=== PATIENT | male | born 1990 | race African-American/Black ===

== ENCOUNTER 2020-12-31 05:29 | Inpatient (IN) | payer OTHER ==
[2020-12-31] VITALS (21 sets, daily range): BP systolic 108–152; BP diastolic 44–97
[~2020-12-31] VITALS: Ht 190.5 cm; Wt 66.0 kg
[2020-12-31] MEDS ORDERED: ONDANSETRON HCL 4 MG/2 ML VIAL ONE ×2 (05:30→14:37)
[2020-12-31] MEDS ORDERED: TETANUS/DIPHTHERIA TOXOID [ADULT] 0.5 ML VIAL IM ONE (05:31)
[2020-12-31] MEDS ORDERED: MORPHINE 4 MG SYG (4MG/1ML) ONE ×2 (05:31→10:04)
[2020-12-31] MEDS ORDERED: CEFAZOLIN SODIUM 1 GM VIAL ONE ×2 (05:31→15:11)
[2020-12-31] MEDS ORDERED: SODIUM CHLORIDE 0.9% 100 ML IV ONE ×2 (05:32→10:32)
[2020-12-31 05:48] LABS: BASOPHILS % (AUTO) 0.5 % (0.0-5.0); HEMATOCRIT 38.7 % (42-54); LYMPHOCYTES % (AUTO) 51.5 % (21.0-51.0); MEAN CORPUSCULAR HEMOGLOBIN 29.9 pg (27.0-33.0); MEAN CORPUSCULAR HGB CONC 32.8 g/dL (32.0-36.0); MEAN CORPUSCULAR VOLUME 91.1 fL (79-99); MONOCYTES % (AUTO) 6.1 % (3.0-13.0); NEUTROPHILS % (AUTO) 39.3 % (40.0-77.0); PLATELET COUNT (AUTO) 181 K/uL (130-400); RED BLOOD CELL COUNT(AUTO) 4.25 MIL/uL (4.50-6.20); RED CELL DISTRIBUTION WIDTH 16.2 % (11.0-15.5); WHITE BLOOD COUNT (AUTO) 10.4 K/uL (4.8-10.8)
[2020-12-31] MEDS ORDERED: SODIUM CHLORIDE 0.9% 1000ML 1,000 ML IV ONE ×2 (06:03→09:59)
[2020-12-31] MEDS ORDERED: IOHEXOL-350 75 ML VIAL IV ONE (06:10)
[2020-12-31 07:08] LABS: ALBUMIN 4.1 g/dL (3.5-5.0); BILIRUBIN,TOTAL 0.3 mg/dL (0.2-1.0); CREATININE 1.5 mg/dL (0.5-1.5); POTASSIUM 3.5 mmol/L (3.5-5.1)
[2020-12-31] MEDS ORDERED: MIDAZOLAM HCL 5 MG/ML 2ML VIAL IV ONE (07:23)
[2020-12-31] MEDS ORDERED: LIDOCAINE 1%-EPI 1:100,000 20 ML VIAL IJ ONE (07:23)
[2020-12-31 10:12] LABS: APPEARANCE,URINE Clear (CLEAR); BILIRUBIN,URINE Negative (NEGATIVE); COLOR,URINE Yellow (YELLOW); GLUCOSE, URINE (UA) Negative (NEGATIVE); KETONES,URINE Trace mg/dL (NEGATIVE); LEUKOCYTE ESTERASE ,URINE Negative (NEGATIVE); NITRATE,URINE Negative (NEGATIVE); OCCULT BLOOD,URINE Small (NEGATIVE); PROTEIN,URINE Negative (NEGATIVE); UROBILINOGEN,URINE 0.2 mg/dL (0.2-1.0)
[2020-12-31 10:15] LABS: BACTERIA,URINE Rare /HPF (None Seen); RBC,URINE 0-1 /HPF (0-1); SQUAMOUS EPITHELIAL CELL,UR Rare /HPF (0-2); WBC,URINE 0-1 /HPF (0-1)
[2020-12-31] MEDS ORDERED: ZOSYN 3.375GM+NS 50ML 50 ML IV ONE (10:32)
[2020-12-31] MEDS: ZOSYN 3.375GM+NS 50ML 50 ML IV SCH ×2 (11:58→20:39)
[2020-12-31] MEDS: MORPHINE 4 MG SYG (4MG/1ML) IV PRN (11:58)
[2020-12-31 14:30] LABS: AMPHET/METH SCREEN,URINE NEGATIVE (NEGATIVE); BARBITURATE SCREEN, URINE NEGATIVE (NEGATIVE); BENZODIAZEPINES SCREEN,URINE POSITIVE (NEGATIVE); CANNABINOID SCREEN,URINE POSITIVE (NEGATIVE); COCAINE SCREEN,URINE NEGATIVE (NEGATIVE); OPIATE SCREEN,URINE POSITIVE (NEGATIVE); PHENCYCLIDINE SCREEN,URINE NEGATIVE (NEGATIVE)
[2020-12-31] MEDS ORDERED: LIDOCAINE PF 100MG/5ML (2%) SYRINGE 5ML ONE (14:37)
[2020-12-31] MEDS ORDERED: DEXAMETHASONE SOD PHOSPHATE 10MG/ML 1ML VIAL ONE (14:37)
[2020-12-31] MEDS ORDERED: FENTANYL CITRATE PF 50 MCG/1 ML 2ML VIAL ONE (14:37)
[2020-12-31] MEDS ORDERED: PROPOFOL 10 MG/ML 20ML VIAL IV ONE (14:38)
[2020-12-31] MEDS ORDERED: MEPERIDINE-PF 25 MG/ML SYG ONE (14:38)
[2020-12-31] MEDS ORDERED: SUCCINYLCHOLINE CHLORIDE 20 MG/ML 10 ML VIAL ONE (14:38)
[2020-12-31] MEDS ORDERED: MIDAZOLAM HCL 1 MG/ML 2ML VIAL ONE (14:38)
[2020-12-31] MEDS ORDERED: PHENYLEPHRINE HCL 10 MG/ML 1ML VIAL IV ONE (14:56)
[2020-12-31] MEDS ORDERED: BUPIVACAINE/PF 0.5% 30ML VIAL ONE (15:15)
[2020-12-31] MEDS ORDERED: ONDANSETRON HCL 4 MG/2 ML VIAL IVP PRN (18:00)
[2020-12-31 18:11] LABS: HEMATOCRIT 29.1 % (42-54); MEAN CORPUSCULAR HEMOGLOBIN 29.9 pg (27.0-33.0); MEAN CORPUSCULAR VOLUME 90.7 fL (79-99); PLATELET COUNT (AUTO) 122 K/uL (130-400); RED BLOOD CELL COUNT(AUTO) 3.21 MIL/uL (4.50-6.20); RED CELL DISTRIBUTION WIDTH 15.9 % (11.0-15.5)
[2020-12-31 18:58] LABS: BAND NEUTROPHILS % (MANUAL) 1 % (0-2); LYMPHOCYTES % (MANUAL) 2 % (22-44); MAN.DIFF COMMENT-IMPRESSION MANUAL DIFFERENTIAL; MONOCYTES % (MANUAL) 5 % (2-9); PLATELET MORPHOLOGY COMMENT SLIGHTLY DECREASED; SEGMENTED NEUTROPHILS % 92 % (40-70)
[2020-12-31] MEDS: SODIUM CHLORIDE 0.9% 1000ML 1,000 ML IV SCH (20:36)
[2021-01-01] MEDS: CEFAZOLIN SODIUM 1 GM VIAL IVP SCH ×4 (00:43→23:08)
[2021-01-01] MEDS: SODIUM CHLORIDE 0.9% 1000ML 1,000 ML IV SCH ×4 (00:43→20:15)
[2021-01-01] MEDS: MORPHINE 4 MG SYG (4MG/1ML) IV PRN ×2 (00:44→20:44)
[2021-01-01 03:59] VITALS: BP 111/55
[2021-01-01 05:14] LABS: BASOPHILS % (AUTO) 0.1 % (0.0-5.0); HEMATOCRIT 25.5 % (42-54); LYMPHOCYTES % (AUTO) 8.7 % (21.0-51.0); MEAN CORPUSCULAR HEMOGLOBIN 29.1 pg (27.0-33.0); MEAN CORPUSCULAR HGB CONC 32.5 g/dL (32.0-36.0); MEAN CORPUSCULAR VOLUME 89.5 fL (79-99); NEUTROPHILS % (AUTO) 83.8 % (40.0-77.0); PLATELET COUNT (AUTO) 127 K/uL (130-400); RED BLOOD CELL COUNT(AUTO) 2.85 MIL/uL (4.50-6.20); RED CELL DISTRIBUTION WIDTH 15.6 % (11.0-15.5); WHITE BLOOD COUNT (AUTO) 12.8 K/uL (4.8-10.8)
[2021-01-01 07:15] VITALS: BP 120/54
[2021-01-01 08:12] LABS: POTASSIUM 4.3 mmol/L (3.5-5.1)
[2021-01-01 11:30] VITALS: BP 119/61
[2021-01-01 16:00] VITALS: BP 113/50
[2021-01-01 19:47] VITALS: BP 116/58
[2021-01-01 23:45] VITALS: BP 123/61
[2021-01-02] VITALS (7 sets, daily range): BP systolic 109–120; BP diastolic 51–68
[2021-01-02] MEDS: CEFAZOLIN SODIUM 1 GM VIAL IVP SCH ×3 (05:20→22:45)
[2021-01-02] MEDS: SODIUM CHLORIDE 0.9% 1000ML 1,000 ML IV SCH ×3 (05:20→18:35)
[2021-01-02] MEDS: MORPHINE 4 MG SYG (4MG/1ML) IV PRN ×2 (11:59→19:30)
[2021-01-03] MEDS: SODIUM CHLORIDE 0.9% 1000ML 1,000 ML IV SCH ×2 (02:25→07:10)
[2021-01-03 04:28] VITALS: BP 104/52
[2021-01-03] MEDS: CEFAZOLIN SODIUM 1 GM VIAL IVP SCH (06:41)
[2021-01-03 08:48] VITALS: BP 109/62
[2021-01-03] MEDS: MORPHINE 4 MG SYG (4MG/1ML) IV PRN (09:23)
[2021-01-03 11:51] VITALS: BP 100/71
[2021-01-03] MEDS: ACETAMINOPHEN-CODEINE 300/30MG TAB PO PRN ×2 (13:19→21:14)
[2021-01-03 16:36] VITALS: BP 105/59
[2021-01-03 20:00] VITALS: BP 148/70
[2021-01-04] VITALS: BP 117/63
[2021-01-04] MEDS: MORPHINE 4 MG SYG (4MG/1ML) IV PRN ×3 (02:42→22:10)
[2021-01-04 04:00] VITALS: BP 114/60
[2021-01-04 08:00] VITALS: BP 111/56
[2021-01-04] MEDS: ACETAMINOPHEN-CODEINE 300/30MG TAB PO PRN (08:43)
[2021-01-04 12:00] VITALS: BP 100/59
[2021-01-04] MEDS: LACTULOSE 20 GM/30 ML UDCUP PO PRN ×2 (12:40→14:55)
[2021-01-04 16:00] VITALS: BP 137/79
[2021-01-04 20:00] VITALS: BP 98/58
[2021-01-05] VITALS: BP 119/58
[2021-01-05 04:00] VITALS: BP 115/65
[2021-01-05 07:30] VITALS: BP 120/62
[2021-01-05] MEDS: MORPHINE 4 MG SYG (4MG/1ML) IV PRN (08:15)
[2021-01-05 09:47] LABS: HEMATOCRIT 26.4 % (42-54); MEAN CORPUSCULAR HEMOGLOBIN 29.2 pg (27.0-33.0); MEAN CORPUSCULAR HGB CONC 31.8 g/dL (32.0-36.0); MEAN CORPUSCULAR VOLUME 91.7 fL (79-99); PLATELET COUNT (AUTO) 182 K/uL (130-400); RED BLOOD CELL COUNT(AUTO) 2.88 MIL/uL (4.50-6.20); RED CELL DISTRIBUTION WIDTH 14.5 % (11.0-15.5); WHITE BLOOD COUNT (AUTO) 7.5 K/uL (4.8-10.8)
[2021-01-05 10:06] LABS: ALBUMIN 2.8 g/dL (3.5-5.0); BILIRUBIN,TOTAL 0.3 mg/dL (0.2-1.0); POTASSIUM 3.8 mmol/L (3.5-5.1); TOTAL PROTEIN, SERUM 6.7 g/dL (6.0-8.3)
[2021-01-05 10:28] LABS: EOSINOPHILS % (MANUAL) 1 % (1-6); LYMPHOCYTES % (MANUAL) 34 % (22-44); MONOCYTES % (MANUAL) 6 % (2-9); SEGMENTED NEUTROPHILS % 59 % (40-70)
[2021-01-05 10:29] LABS: MAN.DIFF COMMENT-IMPRESSION MANUAL DIFFERENTIAL; PLATELET MORPHOLOGY COMMENT ADEQUATE
[2021-01-05 11:00] VITALS: BP 114/52
[2021-01-05 16:00] VITALS: BP 118/61
[2021-01-05] MEDS: ACETAMINOPHEN-CODEINE 300/30MG TAB PO PRN (16:50)
[2021-01-05 20:00] VITALS: BP 121/69
[2021-01-06] VITALS (7 sets, daily range): BP systolic 110–124; BP diastolic 49–66
[2021-01-06] MEDS: ACETAMINOPHEN-CODEINE 300/30MG TAB PO PRN ×4 (01:16→20:31)
[2021-01-06] MEDS: LACTULOSE 20 GM/30 ML UDCUP PO PRN (17:58)
[2021-01-07] MEDS: ACETAMINOPHEN-CODEINE 300/30MG TAB PO PRN ×3 (00:34→15:59)
[2021-01-07 04:00] VITALS: BP 112/49
[2021-01-07 07:30] VITALS: BP 110/47
[2021-01-07 11:00] VITALS: BP 122/59
[2021-01-07 16:00] VITALS: BP 101/49
[2021-01-07] MEDS: KETOROLAC 30MG VIAL (30MG/ML) IV SCH (18:29)
[2021-01-07 20:00] VITALS: BP 115/59
[2021-01-08] VITALS: BP 116/58
[2021-01-08] MEDS: KETOROLAC 30MG VIAL (30MG/ML) IV SCH ×4 (02:08→21:02)
[2021-01-08 04:00] VITALS: BP 114/49
[2021-01-08 07:15] VITALS: BP 108/50
[2021-01-08] MEDS: ACETAMINOPHEN-CODEINE 300/30MG TAB PO PRN (09:27)
[2021-01-08 11:03] VITALS: BP 114/49
[2021-01-08 15:03] VITALS: BP 121/65
[2021-01-08 20:00] VITALS: BP 112/56
[2021-01-09] VITALS: BP 114/53
[2021-01-09] MEDS: ACETAMINOPHEN-CODEINE 300/30MG TAB PO PRN ×2 (01:53→10:19)
[2021-01-09 04:00] VITALS: BP 100/52
[2021-01-09] MEDS: KETOROLAC 30MG VIAL (30MG/ML) IV SCH ×2 (04:00→10:00)
[2021-01-09 07:07] VITALS: BP 109/56
[2021-01-09 11:02] VITALS: BP 114/54
== END 2021-01-09 13:00 | disposition home or self-care (01) | DRG 580 ==
LOC: EDH 05:29 → EEVIPCON 05:30 → EDHIP 05:30 → 3CH 11:17
PROVIDERS: ADMIT Surgery; ATTEND Surgery
PROC: 3E0234Z Introduction of Serum, Toxoid and Vaccine into Muscle, Percutaneous Approach (ICD-10-PCS; 2020-12-31)
PROC: 0W9B30Z Drainage of Left Pleural Cavity with Drainage Device, Percutaneous Approach (ICD-10-PCS; 2020-12-31)
PROC: 0KQ Muscles, Repair (ICD-10-PCS; principal; 2020-12-31 14:39)
DX: S41.012A Laceration without foreign body of left shoulder, initial encounter (principal); J94.2 Hemothorax; S31.119A Laceration without foreign body of abdominal wall, unspecified quadrant without penetration into peritoneal cavity, initial encounter; Z23 Encounter for immunization
CPT/HCPCS: 36415; 71045; 71260; 73060; 80048; 80053; 80305; 81001; 82948; 85025; 86850; 86900; 86901; 90714; 93005; A4606; G0378; J0330; J0690; J1100; J1885; J2001; J2175; J2250; J2270; J2370; J2405; J2543; J2704; J3010; J3490; J7030; J7120; Q9967